=== PATIENT | male | born 1970 | race Caucasian/White ===

== ENCOUNTER → 2018-05-17 | Outpatient (CLI) | payer OTHER ==
--- NOTE | 2018-05-17 10:32 | NM ---
EXAMINATION TYPE: NM stress cardiolite complete DATE OF EXAM: 05/17/2018 COMPARISON: NONE HISTORY: Abnormal EKG TECHNIQUE: After the intravenous administration of 10.9 mCi Tc 99m Sestamibi - Rest images obtained 45 minutes post injection. The patient exercised using a KAYLIN protocol and 1 minute prior to peak exercise was injected with 23.9 mCi Tc 99m Sestamibi - Stress images obtained 15 minutes post injecti on. FINDINGS: Targeted heart rate was achieved during performance of the study. Review of stress and rest SPECT mauricio ges demonstrates no distinct perfusion abnormality. Gated analysis shows normal wall motion with an estimated left ventricular ejection fraction of 62 %. IMPRESSION: No scintigraphic evidence for reversible ischemia
--- NOTE | 2018-05-17 12:09 | EST ---
EXERCISE STRESS AGE: 48 SEX: M HT: 5'10" WT: 206 PROTOCOL: Cardiolite Jesus stress test STAGE: III DURATION OF EXERCISE: 11:30 HEART RATE REST: 55 BLOOD PRESSURE REST: 132/84 MAXIMUM HEART RATE ACHIEVED: 145 MAXIMUM BLOOD PRESSURE: 130/100 85% MPHR: 145 100% MPHR: 170 METS: 12.1 INDICATIONS: Abnormal EKG. CLINICAL INFORMATION: Patient was exercised for a total period of 11 minutes and 30 seconds. A peak heart rate of 145 was achieved. Maximum blood pressure of 139/100 mmHg was noted. Resting EKG shows normal sinus rhythm with normal [place] interval and QRS duration and normal ST-T waves. No ST-segment depression suggestive of ischemia is noted . Patient did not complain of any chest pain during the test. Occasional PVCs were noted. FINAL IMPRESSION: This exercise test, EKG is not suggestive of ischemia. Patient's exercise tolerance is normal. The results of the nuclear study will follow. YOLANDA / BHARATN: [id number] /
== END | disposition home or self-care (01) ==
LOC: RADNMMAIN 07:56
PROVIDERS: ATTEND Family Medicine
DX: R94.31 Abnormal electrocardiogram [ECG] [EKG] (principal)
CPT/HCPCS: 93017; 78452; A9500

== ENCOUNTER 2019-10-24 06:58 | Day surgery (SDC) | payer OTHER ==
[2019-10-22 10:11] VITALS: BMI 28.7
[~2019-10-24 06:58] MED LIST: LACTATED RINGERS 1,000 ML IV SCH; LIDOCAINE 1% 20 ML VIAL (10MG/ML) FOR IV START INTRADERMA PRN
[2019-10-24] MEDS ORDERED: LACTATED RINGERS 1,000 ML IV ONE (07:09)
[2019-10-24 07:21] VITALS: TEMP 98.8
[2019-10-24] MEDS ORDERED: PROPOFOL 10 MG/ML 20 ML VIAL IV ONE (07:46)
--- NOTE | 2019-10-24 07:55 | P.GSHP ---
History of Present Illness H&P Date: 10/24/19 Chief Complaint: Screening colonoscopy This a 49-year-old male presents today for screening colonoscopy patient denies a significant GI complaints. Past Medical History Past Medical History: No Reported History History of Any Multi-Drug Resistant Organisms: None Reported Additional Past Surgical History / Comment(s): oral surgery Past Anesthesia/Blood Transfusion Reactions: No Reported Reaction Smoking Status: Never smoker - Past Family History Father Family Medical History: Deep Vein Thrombosis (DVT) Medications and Allergies Home Medications Medication Instructions Recorded Confirmed Type Lisdexamfetamine Dimesylate 50 mg PO QAM 10/22/19 10/22/19 History [Vyvanse] Allergies Allergy/AdvReac Type Severity Reaction Status Date / Time No Known Allergies Allergy Verified 10/22/19 10:06 Surgical - Exam Vital Signs Temp Pulse Resp Pulse Ox 98.8 F 66 14 97 10/24/19 07:17 10/24/19 07:17 10/24/19 07:17 10/24/19 07:17 - General well developed, well nourished, no distress - Eyes PERRL - ENT normal pinna - Neck no masses - Respiratory normal expansion - Cardiovascular Rhythm: regular - Abdomen Abdomen: soft, non tender Assessment and Plan Assessment: We'll perform screening colonoscopy.
--- NOTE | 2019-10-24 08:05 | P.OP ---
Date of Procedure: 10/24/19 Preoperative Diagnosis: Screening colonoscopy Postoperative Diagnosis: Normal colon Procedure(s) Performed: Colonoscopy Anesthesia: MAC Surgeon: Pedro Landis Pathology: none sent Condition: stable Disposition: PACU Description of Procedure: PROCEDURE: The patient was placed on the endoscopy table in the lateral position. Digital rectal examination was performed which revealed no abnormalities. The prostate was symmetrical without nodules. Flexible colonoscope was then placed in the patient's anus and passed throughout the entire colon. The ileocecal valve was visualized. The cecum, ascending, transverse, descending and sigmoid colon were normal. The rectum was normal as well. There were no masses, polyps or diverticula noted in the entire colon. SUMMARY OF FINDINGS: Normal colonoscopy.
[2019-10-24 08:09] VITALS: RESP 18
[2019-10-24 08:23] VITALS: BP 114/80; PULSE 93
== END 2019-10-24 08:37 | disposition home or self-care (01) ==
LOC: ORWHC2ENDO 06:58
PROVIDERS: ATTEND Surgery
DX: Z12.11 Encounter for screening for malignant neoplasm of colon (principal); Z79.899 Other long term (current) drug therapy
CPT/HCPCS: J2704; G0121

== ENCOUNTER 2020-07-28 18:14 | Emergency (ER) | payer OTHER ==
[2020-07-28 18:31] VITALS: BP 134/93; PULSE 84; RESP 18; TEMP 98.1
--- NOTE | 2020-07-28 20:23 | CT ---
EXAMINATION TYPE: CT brain cspine wo con DATE OF EXAM: 07/28/2020 COMPARISON: None HISTORY: fall Headache. Neck pain CT DLP: 1408.9 mGycm Automated exposure control for dose reduction was used. Ventricles and sulci appear normal. There is no mass effect nor midline shift. There is no sign of in tracranial hemorrhage. Calvarium is intact. Cervical vertebra have normal alignment. Posterior elements are intact. There is minor spurring of th e endplates at C5-6 and C6-7. Prevertebral soft tissues are intact. There is normal aeration of the m astoid sinuses. IMPRESSION: Negative CT scan of the brain. Negative CT scan cervical spine. No fracture.
--- NOTE | 2020-07-28 20:25 | XR ---
EXAMINATION TYPE: XR shoulder complete RT DATE OF EXAM: 07/28/2020 COMPARISON: NONE HISTORY: Shoulder pain TECHNIQUE: 3 views FINDINGS: I see no fracture nor dislocation. Joint spaces are normal. There are no pathologic calcifi cations. There is minor spurring at the AC joint. IMPRESSION: Negative right shoulder exam.
--- NOTE | 2020-07-28 20:32 | XR ---
EXAMINATION TYPE: XR lumbar spine 2 or 3V DATE OF EXAM: 07/28/2020 COMPARISON: NONE HISTORY: Right shoulder pain. Back pain TECHNIQUE: 3 views FINDINGS: Lumbar vertebra have normal alignment. Posterior elements are intact. There is narrowing of L5-S1 disc space with spurring. Sacroiliac joints appear intact. There is no compression fracture. IMPRESSION: Mild spondylosis at L5-S1. No fracture seen.
--- NOTE | 2020-07-28 20:37 | XR ---
EXAMINATION TYPE: XR knee limited bilateral DATE OF EXAM: 07/28/2020 COMPARISON: NONE HISTORY: Shoulder pain. Knee pain TECHNIQUE: 2 views each knee FINDINGS: There is bilateral spurring on the superior patella. There is no sign of joint effusion. I see no fracture nor dislocation. Joint spaces are fairly normal. IMPRESSION: Mild spurring on the patella. No fracture seen.
--- NOTE | 2020-07-28 21:04 | ED ---
General Adult HPI - General Chief complaint: Fall Stated complaint: trip & fall Time Seen by Provider: 07/28/20 19:24 Source: patient, RN notes reviewed, old records reviewed Mode of arrival: ambulatory Limitations: no limitations - History of Present Illness Initial comments: 50-year-old male patient to ED with a slip and fall. Patient reports that he wa s leaving a local business when he slipped, fell forward. Patient reports that he landed on his knees he has had. Also his shoulder. Denies loss of consciousness or use of blood thinners. Chief complaint is right shoulder pain and bilateral knee pain and right paralumbar back pain mild amount of neck stiffness. Denies any headache. Denies loss of bowel or bladder control. Denies any weakness or any paresthesias. Denies any other complaints. Systemic: Pt denies fatigue, fever/chills, rash. Pt denies weakness, night sweats, weight loss. Neuro: Pt denies headache, visual disturbances, syncope or pre-syncope. HEENT: Pt denies ocular discharge or irritation, otalgia, rhinorrhea, pharyngitis or notable lymphadenopathy. Cardiopulmonary: Pt denies chest pain, SOB, heart palpitations, dyspnea on exertion. Abdominal/GI: Pt denies abdominal pain, n/v/d. : Pt denies dysuria, burning w/ urination, frequency/urgency. Denies new onset urinary or bowel incontinence. Neuro: Pt denies new onset weakness, paresthesias. - Related Data Home Medications Medication Instructions Recorded Confirmed Lisdexamfetamine Dimesylate 50 mg PO QAM 10/22/19 10/22/19 [Vyvanse] Allergies Allergy/AdvReac Type Severity Reaction Status Date / Time No Known Allergies Allergy Verified 07/28/20 18:31 Review of Systems ROS Statement: Those systems with pertinent positive or pertinent negative responses have been documented in the HPI. ROS Other: All systems not noted in ROS Statement are negative. Past Medical History Past Medical History: No Reported History History of Any Multi-Drug Resistant Organisms: None Reported Additional Past Surgical History / Comment(s): oral surgery Past Anesthesia/Blood Transfusion Reactions: No Reported Reaction Past Psychological History: ADD/ADHD Past Alcohol Use History: Rare Past Drug Use History: None Reported - Past Family History Father Family Medical History: Deep Vein Thrombosis (DVT) General Exam - General Exam Comments Initial Comments: Constitutional: NAD, AOX3, Pt has pleasant affect. HEENT: NC/AT, trachea midline, neck supple, no lymphadenopathy. External ears appear normal, without discharge. Mucous membranes moist. Eyes PERRLA, EOM intact. There is no scleral icterus. No pallor noted. Cardiopulmonary: RRR, no murmurs, rubs or gallops, no JVD noted. Lungs CTAB in anterior and posterior sandoval. No peripheral edema. Abdominal exam: Abdomen soft and non-distended. Abdomen non-tender to palpation in all 4 quadrants. Bowel sounds active in LLQ. No hepatosplenomegaly. No ecchymosis Neuro: CN II-XII intact. No nuchal rigidity. No raccon eyes, no yin sign, no hemotympanum. No midline cervical tenderness. MSK: Mild tenderness to right shoulder, range of motion is intact but does elicit some discomfort. No deformity or skin changes. No other areas of tenderness and upper extremities. Mild bilateral knee tenderness. Range of motion intact. Patient ambulatory. No hip tenderness. No posterior calf tenderness bilaterally, homans sign negative bilaterally. Posterior tibialis and radial pulse +2 bilaterally. Sensation intact in upper and lower extremities. Strength in upper and lower extremities is intact and equal. Limitations: no limitations Course Vital Signs 07/28/20 18:28 Temperature 98.1 F Pulse Rate 84 Respiratory 18 Rate Blood Pressure 134/93 O2 Sat by Pulse 98 Oximetry Medical Decision Making - Medical Decision Making 50-year-old male patient to ED for a slip and fall. Patient multiple complaints knee pain, back pain, shoulder pain, mild neck stiffness. Imaging is negative for acute pathology or fracture. Patient will discharge the patient follow-up and return precautions. Case discussed with Dr. Godoy. Disposition Clinical Impression: Shoulder sprain, Back strain, Knee pain, Fall Disposition: HOME SELF-CARE Condition: Stable Instructions (If sedation given, give patient instructions): Shoulder Sprain (ED), Knee Pain (ED), Back Pain (ED), Fall Prevention (ED) Additional Instructions: Follow up with primary care provider tomorrow. Follow up with orthopedic consult 1-2 days. Tylenol and Motrin for pain. Return to ER if any worsening symptoms. Is patient prescribed a controlled substance at d/c from ED?: No Referrals: Maximus Aguero MD [Primary Care Provider] - 1-2 days Tavo Mosley MD [STAFF PHYSICIAN] - 1-2 days
== END 2020-07-28 21:23 | disposition home or self-care (01) ==
LOC: EC 18:14
DX: S39.012A Strain of muscle, fascia and tendon of lower back, initial encounter (principal); S43.401A Unspecified sprain of right shoulder joint, initial encounter; M25.561 Pain in right knee; M25.562 Pain in left knee; F90.9 Attention-deficit hyperactivity disorder, unspecified type; Z79.899 Other long term (current) drug therapy; W01.0XXA Fall on same level from slipping, tripping and stumbling without subsequent striking against object, initial encounter
CPT/HCPCS: 70450; 72100; 72125; 99284

== ENCOUNTER → 2022-05-30 | Outpatient (CLI) | payer OTHER ==
--- NOTE | 2022-05-30 14:15 | US ---
EXAMINATION TYPE: US thyroid st tissue head/neck DATE OF EXAM: 05/30/2022 COMPARISON: NONE CLINICAL HISTORY: R59.9 SWOLLEN LYMPHNODES. doctor felt palpable nodes bilaterally 1 month ago, no il lness Bilateral neck scanned: Largest node on the right = 1.4 x 1.6 x 0.9cm Largest node on the left = 1.4 x 1.1 x 1.1cm No abnormality seen IMPRESSION: Lymph nodes as noted
== END | disposition home or self-care (01) ==
LOC: RADUSWWP 13:39
PROVIDERS: ATTEND Family Medicine
DX: R59.0 Localized enlarged lymph nodes (principal)
CPT/HCPCS: 76536